=== PATIENT | female | born 1965 | race African-American/Black ===

== ENCOUNTER 2017-03-05 05:36 | Inpatient (IN) ==
[2017-02-28 15:11] LABS: Basophils % 0.2 % (0.0-0.8); Eosinophils % 0.1 % (0.00-10.9); Hematocrit 38.3 VOL% (35.7-47.0); Hemoglobin 13.7 GM/DL (12.0-16.0); Immature Granulocytes % 0.3 %; Immature Granulocytes Absolute 0.03 #; Lymphocytes # 2.1 10*3/uL (1.4-4.0); Lymphocytes % 18.6 % (21.3-54.2); Mean Corpuscular HGB Conc 35.8 GM/DL (32-36); Mean Corpuscular Hemoglobin 31 PG (27-34); Mean Corpuscular Volume 87.2 FL (87-102); Mean Platelet Volume 9.2 FL (9.6-12.0); Monocytes % 9.3 % (1.7-12.7); Neutrophils # 7.9 10*3/uL (1.4-7.4); Neutrophils % 71.5 % (38.7-73.9); Platelet Count 265 T/CUMM (130-400); Red Blood Count 4.39 MC/CUMM (3.8-5.5); Red Cell Distribution Width 12.7 % (9.3-17.3)
[2017-02-28 15:21] LABS: PT Patient Result 10.1 SECS; Partial Thromboplastin Time 25.4 SECS (0-40)
--- NOTE | 2017-02-28 15:36 | EKG Report ---
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
[2017-02-28 15:52] LABS: Albumin 3.5 G/DL (3.4-5.0); Bilirubin,Total 0.4 MG/DL (0.2-1.0); Calcium 8.9 MG/DL (8.5-10.1); Osmolality,Calculated 282.5 MOS/KG (273-304); Potassium 3.7 MMOL/L (3.5-5.1); Total Protein 7.2 G/DL (6.4-8.3)
--- NOTE | 2017-02-28 16:02 | XRay Report ---
XR chest 2V Indication: Preop evaluation Comparison: Chest x-ray dated October 28, 2014 Technique: Frontal and lateral views of the chest. Findings: Stable mild cardiomegaly. Chronic change of the lungs without focal consolidation, pleural effusion, or pneumothorax. Visualized osseous and surrounding soft tissue structures appear grossly unchanged. IMPRESSION: Stable mild cardiomegaly without galo pulmonary edema. PROCEDURE INTERPRETED AT [facility] DEPARTMENT OF RADIOLOGY Final Report Signed by: Dr Pablo Harkins
[2017-02-28 16:18] LABS: Apearance,Urine CLEAR (Clear); Bilirubin,Urine Negative (Negative); Blood, Urine Negative (Negative); Glucose,Urine (UA) Negative (Negative); Hyaline Casts,Urine 5 /LPF (0-3); Ketones,Urine Negative (Negative); Mucus,Urine Occasional /LPF (Occasional); Nitrite,Urine Negative (Negative); Protein,Urine Negative; RBC,Urine 1 /HPF (0-4); Squamous Epithelial Cell,Urine Occasional /HPF (0-10); Urine Color Yellow (Yellow); Urine Urobilinogen < 2.0 EU/DL (0.2-1.0); WBC,Urine 2 /HPF (0-6)
--- NOTE | 2017-03-05 06:44 | History and Physical Update ---
History and Physical Update - History and Physical H&P was reviewed, the patient examined and there: are no changes in the patients condition since last H&P was completed.
[2017-03-05] MEDS ORDERED: SODIUM CHLORIDE 0.9% 100 ML IV ONE (08:24)
[2017-03-05] MEDS ORDERED: ceFAZolin 1,000 MG VIAL ONE (08:24)
[2017-03-05] MEDS ORDERED: VANCOMYCIN 1,000 MG VIAL ONE (08:24)
[2017-03-05] MEDS ORDERED: VANCOMYCIN INJ 1,000 MG in SODIUM CHLORIDE 0.9% 250 ML IV ONE (11:00)
[2017-03-05] MEDS ORDERED: BACITRACIN OINT 0.9 GM PACK TOP ONE (11:29)
[2017-03-05] MEDS ORDERED: LACTATED RINGERS 1,000 ML IV SCH ×2 (11:30→15:30)
[2017-03-05] MEDS ORDERED: TRANEXAMIC ACID 1,000 MG/10 ML VIAL IV ONE (12:08)
[2017-03-05] MEDS ORDERED: PHENYLEPHRINE 50 MG/5 ML VIAL ONE ×2 (12:20→15:12)
[2017-03-05] MEDS ORDERED: ETOMIDATE 20 MG/10 ML VIAL IV ONE ×2 (12:20→15:12)
[2017-03-05] MEDS ORDERED: ONDANSETRON 4 MG/2 ML VIAL ONE (12:20)
[2017-03-05] MEDS ORDERED: PROPOFOL 200 MG/20 ML VIAL IV ONE ×2 (12:20→15:09)
[2017-03-05] MEDS ORDERED: LIDOCAINE 1% 5 ML VIAL ONE (12:20)
[2017-03-05] MEDS ORDERED: FLUTICASONE 50 MCG NASAL SPRAY 16 GM BOTTLE BOTH NARES PRN (12:48)
[2017-03-05] MEDS ORDERED: diphenhydrAMINE CAP 25 MG CAPSULE PO PRN (12:49)
[2017-03-05] MEDS ORDERED: oxyCODONE IR 5 MG TABLET PO PRN ×2 (12:49)
[2017-03-05] MEDS ORDERED: MAGNESIUM HYDROXIDE SUSP 30 ML UDCUP PO PRN (12:49)
[2017-03-05] MEDS ORDERED: ONDANSETRON 4 MG/2 ML VIAL IV PRN ×2 (12:49→15:23)
[2017-03-05] MEDS ORDERED: ROPIVACAINE 0.5% 30 ML VIAL ONE (13:35)
--- NOTE | 2017-03-05 14:49 | Operative Note ---
Date of procedure: 03/05/17 Procedure: DIAGNOSIS: Bilateral knee primary osteoarthrosis PROCEDURE: Right total knee arthroplasty (cpt #17187) SURGEON: Ester ANESTHESIA: Spinal with a postoperative adductor canal block PROCEDURE and FINDINGS: After adequate was induced, the patient's knee was prepped and draped in the usual sterile fashion. The limb was exsanguinated with Esmarch. Tourniquet was inflated to 300 mmHg. A median parapatellar approach was made. Femur was cut using an intramedullary guide and a 4 in 1 cutting jig in 5 degrees of valgus. ACL and menisci were excised. Tibia was cut using intramedullary guide. Patella was cut using freehand technique. Components were trialed. Tibial fan was prepared. After trialing the components and inspecting the notch, I elected to convert to a posterior stabilized knee. The proximal half of the PCL was ossified. However, the PS tray had a hole in it and needed to be flashed. The tourniquet was dropped at 39 minutes and then re-inflated at 18 minutes for another 20 minute tourniquet time during notch preparation and cementing. Components were cemented in place using Palacos cement and modern cementing techniques. Excess cement was removed. A 1/8 inch Hemovac drain was placed. The knee was well-balanced and full range of motion with central tracking patella. Deep layers closed with 0- 0 Vicryl. Superficial layers were closed with 2-0 and 3-0 Vicryl. Skin was approximated with aminata. Bacitracin and a sterile dressing was applied. Patient was transferred to recovery. A postoperative adductor canal block is anticipated. COMPONENTS: The Kailee Persona system was used. 7 PS narrow femur, C natural tibia with a +30mm 14 mm stem extension, 14 mm PS liner, 32 mm patella TOURNIQUET TIME: 39, 20 minutes Surgeon / Physician: Thanh Norman Jr. Results - Labs CBC & BMP: 02/28/17 15:02 02/28/17 15:02 Discharge Plan - Discharge Medications No Action Fluticasone 50 Mcg Nasal [place] [Flonase Nasal [place]] 2 spray BOTH NARES DAILY PRN PRN Reason: Allergy Symptoms Escitalopram [Lexapro] 20 mg PO DAILY Trazodone HCl 1 tablet PO BEDTIME Pravastatin [Pravachol] 20 mg PO BEDTIME Lisinopril/Hydrochlorothiazide [Lisinopril-Hctz 20-25 mg Tab] 1 each PO DAILY Meloxicam 15 mg PO DAILY amLODIPine [Norvasc] 10 mg PO DAILY traMADol TAB [Ultram] 50 mg PO Q6H PRN PRN Reason: Pain - Follow Up or Referral - Forms/Instructions
--- NOTE | 2017-03-05 15:04 | Anesthesia Post-Op ---
Anesthesia Post OP - Post Ansesthetic Evaluation Patient seen in post op: Yes Resp: within normal limits CV: within normal limits Mental: within normal limits Temp: within normal limits [id number]: within normal limits Nausea and Vomiting: within normal limits Pain: within normal limits
[2017-03-05] MEDS ORDERED: MIDAZOLAM 2 MG/2 ML VIAL ONE (15:11)
[2017-03-05] MEDS ORDERED: fentaNYL 100 MCG/2 ML VIAL ONE (15:11)
[2017-03-05] MEDS ORDERED: KETAMINE 500 MG/10 ML VIAL ONE (15:11)
[2017-03-05] MEDS ORDERED: ACETAMINOPHEN 1,000 MG/100 ML VIAL IV ONE (15:12)
[2017-03-05] MEDS ORDERED: SODIUM CHLORIDE 0.9% 200 ML IV ONE (15:13)
[2017-03-05] MEDS ORDERED: LACTATED RINGERS 1,000 ML IV ONE (15:13)
[2017-03-05] MEDS: HYDROmorphone 2 MG/1 ML VIAL IV PRN ×2 (15:50→15:59)
--- NOTE | 2017-03-05 16:27 | XRay Report ---
XR knee 2V RT Clinical Information: Joint replacement (right knee), Postop Comparison: None Findings: Postsurgical changes of right total knee arch plasty now noted in place. Overlying soft tissue aminata and drains are noted. Impression: Postoperative changes with no evidence of acute complication. PROCEDURE INTERPRETED AT [facility] DEPARTMENT OF RADIOLOGY Final Report Signed by: Jose J Guerrero
[2017-03-05] MEDS: ACETAMINOPHEN 500 MG TABLET PO SCH ×2 (17:18→23:37)
[2017-03-05] MEDS: KETOROLAC 30 MG/1 ML VIAL IV SCH ×2 (17:20→23:37)
[2017-03-05] MEDS: ceFAZolin 2,000 MG in PREMIX 1 EACH IV SCH (17:23)
[2017-03-05] MEDS: DOCUSATE SODIUM 100 MG CAPSULE PO SCH (21:10)
[2017-03-05] MEDS: traZODone 50 MG TABLET PO SCH (21:10)
[2017-03-05] MEDS: PRAVASTATIN 20 MG TABLET PO SCH (21:10)
[2017-03-05] MEDS: LACTATED RINGERS 1,000 ML IV SCH ×2 (23:39→23:40)
[2017-03-06] MEDS ORDERED: VANCOMYCIN INJ 1,000 MG in SODIUM CHLORIDE 0.9% 250 ML IV ONE
[2017-03-06] MEDS: MORPHINE 2 MG/1 ML SYRINGE IV PRN ×2 (00:08→22:30)
[2017-03-06] MEDS: ceFAZolin 2,000 MG in PREMIX 1 EACH IV SCH (02:46)
[2017-03-06] MEDS: ACETAMINOPHEN 500 MG TABLET PO SCH ×2 (05:16→11:14)
[2017-03-06] MEDS: KETOROLAC 30 MG/1 ML VIAL IV SCH ×2 (05:16→11:20)
[2017-03-06 05:51] LABS: Basophils % 0.2 % (0.0-0.8); Eosinophils # 0.1 10*3/uL (0.0-0.87); Eosinophils % 1.2 % (0.00-10.9); Hematocrit 28.5 VOL% (35.7-47.0); Hemoglobin 9.9 GM/DL (12.0-16.0); Immature Granulocytes % 0.3 %; Immature Granulocytes Absolute 0.03 #; Lymphocytes # 1.2 10*3/uL (1.4-4.0); Lymphocytes % 11.3 % (21.3-54.2); Mean Corpuscular HGB Conc 34.7 GM/DL (32-36); Mean Corpuscular Hemoglobin 31 PG (27-34); Mean Corpuscular Volume 89.6 FL (87-102); Mean Platelet Volume 9.1 FL (9.6-12.0); Monocytes # 1.3 10*3/uL (0.11-0.8); Monocytes % 12.9 % (1.7-12.7); Neutrophils # 7.7 10*3/uL (1.4-7.4); Neutrophils % 74.1 % (38.7-73.9); Platelet Count 196 T/CUMM (130-400); Red Blood Count 3.18 MC/CUMM (3.8-5.5); Red Cell Distribution Width 12.7 % (9.3-17.3); White Blood Count 10.3 T/CUMM (4-12)
[2017-03-06 06:11] LABS: Hypochromasia 1+; Microcytosis Slight
[2017-03-06 06:19] LABS: Osmolality,Calculated 280.5 MOS/KG (273-304); Potassium 3.5 MMOL/L (3.5-5.1)
[2017-03-06] MEDS: FONDAPARINUX 2.5 MG/0.5 ML SYRINGE SUBCUT SCH (06:27)
--- NOTE | 2017-03-06 07:26 | Orthopedic Progress Note ---
Orthopedics - Subjective Interval history: Comfortable now. She is able to perform straight leg raise. She has lesser toe extension but not great toe or ankle extension. Her peroneals, posterior tibialis and flexors are all intact. Sensation is intact to the dorsum of her foot, first dorsal webspace and plantar aspect. She has a 2+ dorsalis pedis pulse. Her dressing was taken down. Incisions well-healed. She is not particularly swollen. Compartments are soft. Impression: Incomplete deep peroneal nerve palsy Plan: We are going to watch her palsy for now. Hopefully it will improve. I discussed obtaining a ankle-foot orthosis if it does not improve. We will plan home with outpatient therapy. Exam - Constitutional Vitals: Period Temp Pulse Resp BP Sys/Katz Pulse Ox Last 24 Hr 97.3 F-99 F 63-87 14-20 94-128/50-84 95-98 Results - Labs CBC & BMP: 03/06/17 05:29 03/06/17 05:29
[2017-03-06] MEDS: DOCUSATE SODIUM 100 MG CAPSULE PO SCH ×2 (09:37→20:42)
[2017-03-06] MEDS: ESCITALOPRAM 10 MG TABLET PO SCH (09:38)
[2017-03-06] MEDS: amLODIPine 10 MG TABLET PO SCH (09:39)
[2017-03-06] MEDS: LISINOPRIL/HCTZ 20-25 MG TABLET PO SCH (09:39)
--- NOTE | 2017-03-06 11:14 | Physician Query Form ---
CLICK EDIT DOCUMENT TO SELECT QUERY ANSWER --> OK --> SIGN Sammie Garcia RN Clinical Transmission System Operator W) [phone] (f) [phone] [email or web address]: Make your selection(s) from the choices in EACH section by typing an "x" and enter comments in the comment section. Please use your independent medical judgment in providing your response. This request does not imply that any particular answer is desired or expected. 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 Notes: Class 3 obesity New Account Interviewer Recommendations: Nutrition plan of 1500 kcal per day and Caltrate 600 + D BID If applicable, please provide an associated diagnosis related to the abnormal BMI: BMI of 40 or greater: ( ) Overweight ( ) Obesity ( x) Morbid//Severe Obesity ( ) Obesity with Alveolar Hypoventilation ( ) Weight Gain ( ) BMI is not significant ( ) Other, please specify: ( ) Clinically unable to determine COMMENTS: PLEASE ALSO DOCUMENT RESPONSE IN PROGRESS NOTES AND/OR DISCHARGE SUMMARY Use of terms such as suspected, likely, or probable (associated with a specific diagnosis that is being evaluated, monitored, or treated as if it exists) are acceptable and can be restated in the discharge summary if not ruled out. MTDD
[2017-03-06] MEDS ORDERED: KETOROLAC 30 MG/1 ML VIAL IV ONE (11:30)
[2017-03-06] MEDS ORDERED: ACETAMINOPHEN 325 MG TABLET PO PRN (12:49)
[2017-03-06] MEDS: CELECOXIB 200 MG CAPSULE PO SCH (13:48)
[2017-03-06] MEDS: PRAVASTATIN 20 MG TABLET PO SCH (20:42)
[2017-03-06] MEDS: traZODone 50 MG TABLET PO SCH (20:42)
[2017-03-07] MEDS: MORPHINE 2 MG/1 ML SYRINGE IV PRN ×3 (01:17→14:37)
[2017-03-07 06:48] LABS: Basophils % 0.2 % (0.0-0.8); Eosinophils # 0.2 10*3/uL (0.0-0.87); Eosinophils % 1.7 % (0.00-10.9); Hematocrit 27.9 VOL% (35.7-47.0); Hemoglobin 9.6 GM/DL (12.0-16.0); Immature Granulocytes % 0.5 %; Immature Granulocytes Absolute 0.05 #; Lymphocytes # 1.6 10*3/uL (1.4-4.0); Lymphocytes % 14.9 % (21.3-54.2); Mean Corpuscular HGB Conc 34.4 GM/DL (32-36); Mean Corpuscular Hemoglobin 31 PG (27-34); Mean Corpuscular Volume 88.6 FL (87-102); Mean Platelet Volume 9.2 FL (9.6-12.0); Monocytes # 1.2 10*3/uL (0.11-0.8); Monocytes % 10.6 % (1.7-12.7); Neutrophils # 7.9 10*3/uL (1.4-7.4); Neutrophils % 72.1 % (38.7-73.9); Platelet Count 196 T/CUMM (130-400); Red Blood Count 3.15 MC/CUMM (3.8-5.5); Red Cell Distribution Width 12.5 % (9.3-17.3); White Blood Count 10.9 T/CUMM (4-12)
[2017-03-07 07:15] LABS: Eosinophils 1 % (0-10); Hypochromasia 1+; Lymphocytes 16 % (20-55); Microcytosis Slight; Platelet Estimate Normal; Segmented Neutrophils 70 % (50-85); Total Cells Counted 100
--- NOTE | 2017-03-07 07:17 | Orthopedic Progress Note ---
Orthopedics - Subjective Interval history: was able to walk in the [place] short distance. She states her foot is unchanged. Exam shows serosanguineous drainage. She still has her EHL and tibialis anterior are out. EDL was in. Neurovascular exam is unchanged. Impression: Status post right total knee arthroplasty. Right incomplete deep peroneal nerve palsy. Plan: Consult [facility] for a right rigid [id number] ankle- foot orthosis for her peroneal nerve palsy. I discussed with the patient that I anticipate that her neurapraxia can injury to her deep peroneal nerve should resolve. May be 2 or 3 months. Will plan for home tomorrow after she receives her AFO. Exam - Constitutional Vitals: Period Temp Pulse Resp BP Sys/Katz Pulse Ox Last 24 Hr 97.1 F-98.6 F 72-90 18-95 111-130/61-75 94-97 Results - Labs CBC & BMP: 03/07/17 06:27 03/06/17 05:29
[2017-03-07] MEDS: LISINOPRIL/HCTZ 20-25 MG TABLET PO SCH (08:39)
[2017-03-07] MEDS: amLODIPine 10 MG TABLET PO SCH (08:40)
[2017-03-07] MEDS: DOCUSATE SODIUM 100 MG CAPSULE PO SCH ×2 (08:42→20:06)
[2017-03-07] MEDS: FONDAPARINUX 2.5 MG/0.5 ML SYRINGE SUBCUT SCH (09:03)
[2017-03-07] MEDS: CELECOXIB 200 MG CAPSULE PO SCH (11:36)
[2017-03-07] MEDS: ESCITALOPRAM 10 MG TABLET PO SCH (11:36)
[2017-03-07] MEDS: traZODone 50 MG TABLET PO SCH (20:06)
[2017-03-07] MEDS: PRAVASTATIN 20 MG TABLET PO SCH (20:06)
[2017-03-08 05:59] LABS: Basophils % 0.2 % (0.0-0.8); Eosinophils # 0.2 10*3/uL (0.0-0.87); Eosinophils % 1.9 % (0.00-10.9); Hematocrit 27.9 VOL% (35.7-47.0); Hemoglobin 9.4 GM/DL (12.0-16.0); Immature Granulocytes % 0.4 %; Immature Granulocytes Absolute 0.04 #; Lymphocytes # 1.8 10*3/uL (1.4-4.0); Lymphocytes % 19.6 % (21.3-54.2); Mean Corpuscular HGB Conc 33.7 GM/DL (32-36); Mean Corpuscular Hemoglobin 30 PG (27-34); Mean Corpuscular Volume 89.7 FL (87-102); Mean Platelet Volume 9.6 FL (9.6-12.0); Monocytes # 0.8 10*3/uL (0.11-0.8); Monocytes % 9.2 % (1.7-12.7); Neutrophils # 6.1 10*3/uL (1.4-7.4); Neutrophils % 68.7 % (38.7-73.9); Platelet Count 236 T/CUMM (130-400); Red Blood Count 3.11 MC/CUMM (3.8-5.5); Red Cell Distribution Width 12.7 % (9.3-17.3); White Blood Count 8.9 T/CUMM (4-12)
[2017-03-08] MEDS: FONDAPARINUX 2.5 MG/0.5 ML SYRINGE SUBCUT SCH (06:31)
[2017-03-08 06:37] LABS: Hypochromasia 1+; Microcytosis Slight; Ovalocytes Slight; Platelet Estimate Adequate
--- NOTE | 2017-03-08 09:06 | Orthopedic Progress Note ---
Orthopedics - Subjective Interval history: Ms Lopez is comfortable. She is currently walking in the [place] with physical therapy. Her dressing is clean, dry and intact. She still demonstrates a foot drop. Plan: We will plan discharge home tomorrow. She has not received her AFO yet. Exam - Constitutional Vitals: Period Temp Pulse Resp BP Sys/Katz Pulse Ox Last 24 Hr 97.3 F-98.6 F 73-87 17-20 109-161/62-88 92-98 Results - Labs CBC & BMP: 03/08/17 04:46 03/06/17 05:29
[2017-03-08] MEDS: LISINOPRIL/HCTZ 20-25 MG TABLET PO SCH (09:33)
[2017-03-08] MEDS: amLODIPine 10 MG TABLET PO SCH (09:33)
[2017-03-08] MEDS: DOCUSATE SODIUM 100 MG CAPSULE PO SCH ×2 (09:33→21:11)
[2017-03-08] MEDS: CELECOXIB 200 MG CAPSULE PO SCH (11:43)
[2017-03-08] MEDS: ESCITALOPRAM 10 MG TABLET PO SCH (11:44)
[2017-03-08] MEDS: PRAVASTATIN 20 MG TABLET PO SCH (21:11)
[2017-03-08] MEDS: traZODone 50 MG TABLET PO SCH (21:11)
[2017-03-09 05:40] LABS: Calcium 8.8 MG/DL (8.5-10.1); Osmolality,Calculated 281.4 MOS/KG (273-304); Potassium 3.4 MMOL/L (3.5-5.1)
[2017-03-09] MEDS: FONDAPARINUX 2.5 MG/0.5 ML SYRINGE SUBCUT SCH (06:23)
--- NOTE | 2017-03-09 08:03 | Discharge Summary ---
Hospital Course - Hospital Course Hospital Course: Ms Lopez was admitted after undergoing a right total knee replacement. She received perioperative DVT and antimicrobial prophylaxis. She received physical therapy. Her surgery was complicated with a incomplete deep peroneal nerve palsy. Tibialis anterior and EHL are out. She has her great toe flexors and peroneals. Sensations grossly intact to her foot including her first dorsal webspace. Her dressing is clean, dry and intact. Specialty Discharge - Follow Up or Referrals Follow up with: Thanh Norman Jr., MD [Physician] - (7-10 DAYS) Discharge Plan - Discharge Data Disposition: Disch To Home/Self Care Condition at Discharge: Stable Discharge Diet: advance to your usual diet Hygiene: may shower Weight Bearing at Discharge: weight bear as tolerated Driving: not until seen by doctor - Discharge Medications New HYDROcodone/ACETAMIN 7.5-325 [[place] 7.5-325] 1 tablet PO Q4H PRN tablet PRN Reason: Pain Moderate (4-7) HYDROcodone/ACETAMIN 7.5-325 [[place] 7.5-325] 2 tablet PO Q4H PRN tablet PRN Reason: Moderate Pain unrelieved by 1 Continue Fluticasone 50 Mcg Nasal [place] [Flonase Nasal [place]] 2 spray BOTH NARES DAILY PRN PRN Reason: Allergy Symptoms Escitalopram [Lexapro] 20 mg PO DAILY Trazodone HCl 1 tablet PO BEDTIME Pravastatin [Pravachol] 20 mg PO BEDTIME Lisinopril/Hydrochlorothiazide [Lisinopril-Hctz 20-25 mg Tab] 1 each PO DAILY Meloxicam 15 mg PO DAILY amLODIPine [Norvasc] 10 mg PO DAILY Discontinued traMADol TAB [Ultram] 50 mg PO Q6H PRN PRN Reason: Pain - Follow Up or Referral Follow Up: Thanh Norman Jr., MD [Physician] - (7-10 DAYS) - Forms/Instructions Instructions: Total Knee Replacement (DC) Additional Discharge Instructions: Daily dry dressing changes. Weightbearing as tolerated. Arrange walker and bedside commode for home use. Wear MARCUS hose for 1 month. Follow-up appointment in 7-10 days. Prescription for [place] 7.5 with 30 tablets was written. Take aspirin 325 mg by mouth daily for 21 days. Arrange outpatient physical therapy 3 times a week for 4 weeks.. Exam - Constitutional Vitals: Period Temp Pulse Resp BP Sys/Katz Pulse Ox Last 24 Hr 96.5 F-98.6 F 70-82 16-20 105-136/54-92 94-100 Discharge Results Labs on day of discharge: Labs from last 24 hours 03/09/17 04:18 Sodium 140 Potassium 3.4 L Chloride 100 Carbon Dioxide 31 Anion Gap 12.4 BUN 14 Creatinine 0.50 L GFR Calculation 145 BUN/Creatinine Ratio 28.00 H Glucose 127 H Calculated Osmolality 281.4 Calcium 8.8 DS: Provider Date of admission: 03/05/17 05:36 Primary care physician: Arleen Woody Attending physician on admission: Thanh Norman Jr., Consults: 03/05/17 12:49 Consult to Case Mgmt/Social Srvs [CONS] Routine Reason for Case Mgmt/Social Srvs: Rehab Home Health Equipment Consult Comment: Bedside Commode, Deliver to rm 320 before D/C; Pt 5ft 219 lbs. Consult to Occupational Therapy [CONS] Routine Reason for Occupational Therapy: Evaluate and Treat Consult Comment: ADL's Consult to Physical Therapy [CONS] Routine Reason for Physical Therapy: Evaluate and Treat Gait Training Start Therapy: Today 03/07/17 17:22 Consult to Outpatient Therapy [CONS] Routine Reason for Outpatient Therapy: Physical Therapy Consult Comment: Set up OP Rehab thaddeus/Michelle OP Rehab before D/C room 320 03/08/17 09:59 Consult to Physical Therapy [CONS] Routine Reason for Physical Therapy: Other Consult Comment: Deliver Standard Walker to Pt before D/C'd home. Room 320 Discharging clinician: Thanh Norman Jr., Expected date of discharge: 03/09/17
[2017-03-09] MEDS: CELECOXIB 200 MG CAPSULE PO SCH (08:20)
[2017-03-09] MEDS: amLODIPine 10 MG TABLET PO SCH (08:20)
[2017-03-09] MEDS: LISINOPRIL/HCTZ 20-25 MG TABLET PO SCH (08:20)
[2017-03-09] MEDS: ESCITALOPRAM 10 MG TABLET PO SCH (08:21)
[2017-03-09] MEDS: DOCUSATE SODIUM 100 MG CAPSULE PO SCH (08:21)
--- NOTE | 2017-03-09 11:19 | Pathology Report from [facility] ---
[facility] ACCESSION # : [id number] PATIENT NAME : Shikha Lopez ORDERING DR : STEPHANIE HDZ MD CLINICAL HX: RT knee osteoarthritis POST-OP DX: Same SPECIMEN INFO: RT knee bone & tissue GROSS DESCRIPTION: Received in formalin labeled SHIKHA LOPEZ is an aggregate of bone, soft tissue and cartilage measuring 13.0 x 5.5 cm. The articular surfaces are focally degenerative with large areas of subchondral eburnation seen. Layout Man tissue is submitted in one cassette following decalcification. DIAGNOSIS FOR SHIKHA LOPEZ: RIGHT KNEE BONE & TISSUE, TOTAL REPLACEMENT: Osteoarthritis. COLLECTED DATE: 03/05/2017 [facility] REPORT DATE: 03/08/2017 ELECTRONICALLY SIGNED BY: Erlin Urena M.D. 03/08/2017 - 9:44:53 [facility]
[2017-03-09 11:44] VITALS: BP 123/66
== END 2017-03-09 12:45 | disposition home or self-care (01) | DRG 470 ==
LOC: N.SDSINP 05:36 → N.3E 16:21
PROVIDERS: ADMIT Orthopaedic Surgery; ATTEND Orthopaedic Surgery

== ENCOUNTER 2018-11-19 05:35 | Inpatient (IN) ==
[2018-11-19] MEDS ORDERED: ceFAZolin 1,000 MG in SYRINGE 1 EACH IV ONE (06:00)
[2018-11-19] MEDS ORDERED: VANCOMYCIN INJ 1,000 MG in SODIUM CHLORIDE 0.9% 250 ML IV ONE (06:00)
[2018-11-19] MEDS ORDERED: DIAZEPAM 5 MG TABLET PO ONE (06:00)
[2018-11-19] MEDS ORDERED: FAMOTIDINE 20 MG TABLET PO ONE (06:00)
[2018-11-19] MEDS ORDERED: LACTATED RINGERS 1,000 ML IV SCH (07:00)
[2018-11-19] MEDS ORDERED: ceFAZolin 1,000 MG VIAL ONE (07:26)
[2018-11-19] MEDS ORDERED: FAMOTIDINE 20 MG TABLET ONE (07:26)
[2018-11-19] MEDS ORDERED: DIAZEPAM 5 MG TABLET ONE (07:26)
[2018-11-19] MEDS ORDERED: VANCOMYCIN 1,000 MG VIAL ONE (07:26)
[2018-11-19] MEDS ORDERED: fentaNYL 100 MCG/2 ML VIAL ONE (08:23)
[2018-11-19] MEDS ORDERED: MIDAZOLAM 2 MG/2 ML VIAL ONE ×3 (08:23→12:37)
[2018-11-19] MEDS ORDERED: PROPOFOL 500 MG/50 ML BOTTLE IV ONE (08:53)
[2018-11-19] MEDS ORDERED: DEXAMETHASONE 4 MG/1 ML VIAL ONE (08:53)
[2018-11-19] MEDS ORDERED: LIDOCAINE 1% 5 ML VIAL ONE (08:53)
[2018-11-19] MEDS ORDERED: ROPIVACAINE 0.5% 30 ML VIAL ONE (08:53)
[2018-11-19] MEDS ORDERED: PHENYLEPHRINE 1 MG/10 ML SYRINGE IV ONE (08:54)
[2018-11-19] MEDS ORDERED: BUPIVACAINE SPINAL 0.75% 2 ML AMP SPINAL ONE (09:00)
[2018-11-19] MEDS ORDERED: FLUTICASONE 50 MCG NASAL SPRAY 16 GM BOTTLE BOTH NARES PRN (10:06)
[2018-11-19] MEDS ORDERED: ONDANSETRON 4 MG/2 ML VIAL IV PRN ×2 (10:07→12:10)
[2018-11-19] MEDS ORDERED: diphenhydrAMINE CAP 25 MG CAPSULE PO PRN (10:07)
[2018-11-19] MEDS ORDERED: oxyCODONE IR 5 MG TABLET PO PRN (10:07)
[2018-11-19] MEDS ORDERED: MAGNESIUM HYDROXIDE SUSP 30 ML UDCUP PO PRN (10:07)
[2018-11-19] MEDS ORDERED: HYDROmorphone 2 MG/1 ML VIAL IV PRN (10:07)
[2018-11-19] MEDS ORDERED: BACITRACIN OINT 0.9 GM PACK TOP ONE (10:46)
[2018-11-19] MEDS: LACTATED RINGERS 1,000 ML IV SCH ×2 (12:02→18:37)
[2018-11-19] MEDS ORDERED: KETAMINE 500 MG/10 ML VIAL ONE (12:09)
[2018-11-19] MEDS ORDERED: GLYCOPYRROLATE 0.4 MG/2 ML VIAL ONE (12:09)
[2018-11-19] MEDS ORDERED: LACTATED RINGERS 1,000 ML IV ONE (12:10)
[2018-11-19] MEDS ORDERED: PROMETHAZINE INJ 25 MG in SODIUM CHLORIDE 0.9% 50 ML IV PRN (12:10)
[2018-11-19] MEDS ORDERED: MEPERIDINE 25 MG/1 ML VIAL IV PRN (12:10)
[2018-11-19] MEDS ORDERED: TRANEXAMIC ACID 1,000 MG/10 ML VIAL ONE (12:10)
[2018-11-19] MEDS ORDERED: KETOROLAC 30 MG/1 ML VIAL ONE (12:18)
[2018-11-19] MEDS: HYDROmorphone 2 MG/1 ML VIAL IV PRN ×6 (12:20→18:38)
[2018-11-19] MEDS: KETOROLAC 30 MG/1 ML VIAL IV SCH ×3 (12:28→23:25)
[2018-11-19] MEDS: ACETAMINOPHEN 500 MG TABLET PO SCH ×2 (14:37→21:30)
[2018-11-19] MEDS: ceFAZolin 2,000 MG in PREMIX 1 EACH IV SCH (17:57)
[2018-11-19] MEDS: oxyCODONE IR 5 MG TABLET PO PRN (21:28)
[2018-11-19] MEDS: CALCIUM (CARBONATE)/VITAMIN D 500 MG-200 UNIT TABLET PO SCH (21:31)
[2018-11-19] MEDS: QUEtiapine 100 MG TABLET PO SCH (21:31)
[2018-11-19] MEDS: SIMVASTATIN 10 MG TABLET PO SCH (21:31)
[2018-11-19] MEDS: DOCUSATE SODIUM 100 MG CAPSULE PO SCH (21:31)
[2018-11-20] MEDS: ceFAZolin 2,000 MG in PREMIX 1 EACH IV SCH (02:45)
[2018-11-20] MEDS: ACETAMINOPHEN 500 MG TABLET PO SCH ×2 (03:13→08:20)
[2018-11-20] MEDS: LACTATED RINGERS 1,000 ML IV SCH (03:16)
[2018-11-20 04:46] LABS: Basophils % 0.2 % (0.0-0.8); Hematocrit 31.6 VOL% (35.7-47.0); Hemoglobin 10.2 GM/DL (12.0-16.0); Immature Granulocytes % 0.5 %; Immature Granulocytes Absolute 0.06 #; Lymphocytes # 1.3 10*3/uL (1.4-4.0); Mean Corpuscular HGB Conc 32.3 GM/DL (32-36); Mean Corpuscular Hemoglobin 31 PG (27-34); Mean Corpuscular Volume 95.2 FL (87-102); Mean Platelet Volume 9.1 FL (9.6-12.0); Monocytes # 1.1 10*3/uL (0.11-0.8); Monocytes % 9.3 % (1.7-12.7); Platelet Count 200 T/CUMM (130-400); Red Blood Count 3.32 MC/CUMM (3.8-5.5); White Blood Count 11.4 T/CUMM (4-12)
[2018-11-20 05:04] LABS: Calcium 7.9 MG/DL (8.5-10.1); Osmolality,Calculated 283.4 MOS/KG (273-304); Potassium 4.1 MMOL/L (3.5-5.1)
[2018-11-20] MEDS: FONDAPARINUX 2.5 MG/0.5 ML SYRINGE SUBCUT SCH (05:55)
[2018-11-20] MEDS ORDERED: KETOROLAC 30 MG/1 ML VIAL IV SCH (06:30)
[2018-11-20] MEDS: KETOROLAC 30 MG/1 ML VIAL IV SCH (06:59)
[2018-11-20] MEDS: LISINOPRIL/HCTZ 20-25 MG TABLET PO SCH (09:24)
[2018-11-20] MEDS: amLODIPine 10 MG TABLET PO SCH (09:24)
[2018-11-20] MEDS: CALCIUM (CARBONATE)/VITAMIN D 500 MG-200 UNIT TABLET PO SCH ×2 (09:25→21:12)
[2018-11-20] MEDS: DULoxetine 20 MG CAPSULE PO SCH (09:25)
[2018-11-20] MEDS: DOCUSATE SODIUM 100 MG CAPSULE PO SCH ×2 (09:25→21:13)
[2018-11-20] MEDS: oxyCODONE IR 5 MG TABLET PO PRN (11:48)
[2018-11-20] MEDS: CELECOXIB 200 MG CAPSULE PO SCH (16:24)
[2018-11-20] MEDS ORDERED: SODIUM PHOSPHATE ENEMA 133 ML BOTTLE RECTAL PRN (19:24)
[2018-11-20] MEDS ORDERED: SODIUM PHOSPHATE ENEMA 133 ML BOTTLE RECTAL ONE (19:24)
[2018-11-20] MEDS: QUEtiapine 100 MG TABLET PO SCH (21:13)
[2018-11-20] MEDS: SIMVASTATIN 10 MG TABLET PO SCH (21:13)
[2018-11-21 05:16] LABS: Basophils % 0.4 % (0.0-0.8); Eosinophils # 0.1 10*3/uL (0.0-0.87); Eosinophils % 1.3 % (0.00-10.9); Hematocrit 29.9 VOL% (35.7-47.0); Hemoglobin 9.7 GM/DL (12.0-16.0); Immature Granulocytes % 0.5 %; Immature Granulocytes Absolute 0.06 #; Lymphocytes % 18.3 % (21.3-54.2); Mean Corpuscular HGB Conc 32.4 GM/DL (32-36); Mean Corpuscular Hemoglobin 31 PG (27-34); Mean Corpuscular Volume 95.8 FL (87-102); Mean Platelet Volume 9.2 FL (9.6-12.0); Monocytes # 0.9 10*3/uL (0.11-0.8); Monocytes % 7.8 % (1.7-12.7); Neutrophils # 7.8 10*3/uL (1.4-7.4); Neutrophils % 71.7 % (38.7-73.9); Platelet Count 199 T/CUMM (130-400); Red Blood Count 3.12 MC/CUMM (3.8-5.5); Red Cell Distribution Width 13.2 % (9.3-17.3); White Blood Count 10.9 T/CUMM (4-12)
[2018-11-21 05:27] LABS: Calcium 7.7 MG/DL (8.5-10.1); Osmolality,Calculated 282.4 MOS/KG (273-304); Potassium 3.7 MMOL/L (3.5-5.1)
[2018-11-21] MEDS: FONDAPARINUX 2.5 MG/0.5 ML SYRINGE SUBCUT SCH (05:40)
[2018-11-21] MEDS: CALCIUM (CARBONATE)/VITAMIN D 500 MG-200 UNIT TABLET PO SCH (08:55)
[2018-11-21] MEDS: DOCUSATE SODIUM 100 MG CAPSULE PO SCH (08:56)
[2018-11-21] MEDS: LISINOPRIL/HCTZ 20-25 MG TABLET PO SCH (08:56)
[2018-11-21] MEDS: CELECOXIB 200 MG CAPSULE PO SCH (08:56)
[2018-11-21] MEDS: amLODIPine 10 MG TABLET PO SCH (08:57)
[2018-11-21] MEDS: DULoxetine 20 MG CAPSULE PO SCH (10:38)
[2018-11-21 12:09] VITALS: BP 103/70
== END 2018-11-21 13:18 | DRG 302 ==
LOC: N.OR 05:35 → N.SDSINP 05:36 → N.3E 13:07
PROVIDERS: ADMIT Orthopaedic Surgery; ATTEND Orthopaedic Surgery